=== PATIENT | female | born 1995 | race Caucasian/White ===

== ENCOUNTER 2019-06-29 11:45 | Inpatient (IN) | payer OTHER, SELFPAY ==
[2019-06-29 12:17] VITALS: BP 123/82; TEMP 98.6; BMI 37.9
[2019-06-29] MEDS ORDERED: hydrALAZINE 20 MG/ML VIAL SLOW IVP PRN (12:34)
[2019-06-29 13:21] LABS: #Eosinphils 0.1 thou/uL (0.0-0.7); #Lymphocytes 1.6 thou/uL (1.20-3.40); #Monocytes 0.8 thou/uL (0.11-0.59); #Neutrophils 7.8 thou/uL (1.40-6.50); %Basophils 0.2 % (0.0-1.0); %Eosinophils 0.9 % (0.0-10.0); %Lymphocytes 15.1 % (21.0-51.0); %Monocytes 7.6 % (0.0-10.0); %Neutrophils 76.2 % (42.0-75.0); Hemoglobin 10.7 g/dL (12.0-16.0); Mean Corpuscular HGB CONC 33.8 g/dL (32.0-36.0); Mean Corpuscular Hemoglobin 28.6 pg (27.0-31.0); Mean Corpuscular Volume 84.8 fL (78.0-98.0); Mean Platelet Volume 10.8 fL (7.4-10.4); Platelet Count 146 thou/uL (130-400); RBC Distribution Width 12.8 % (11.5-14.5); Red Blood Cell (RBC) Count 3.75 mill/uL (4.20-5.40); White Blood Cell (WBC) Count 10.3 thou/uL (4.8-10.8)
--- NOTE | 2019-06-29 13:38 | PDOC.LDHP ---
Labor and Delivery H&P Chief complaint: other (PIH workup) HPI: 24 y/o at 35w5d sent from Dr. Wu for PIH workup. Denies VB, LOF, ctx or decreased FM. Endorses a ANDERSON but has a history of migraines and has not eaten anything or had any caffeine today. Denies RUQ pain or vision changes. ROS neg for HEENT, cv, pulm, gi, gu, neuro, psych, skin, musculoskeletal or constitutional symptoms other than mentioned above. 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, anxiety, depression, asthma Current medications: pre-margarita vitamins, other (Metformin, fioricet, Bactrim) Previous surgical history: other (hip arthroscopy, rotator cuff repair, knee arthroscopy, ex lap for bleeding spleen) Allergies/Adverse Reactions: Allergies Allergy/AdvReac Type Severity Reaction Status Date / Time codeine Allergy Verified 06/29/19 12:53 gabapentin Allergy Verified 06/29/19 12:53 tramadol Allergy Verified 06/29/19 12:53 Social history: none - Physical Exam Vital signs reviewed and normal: yes General: NAD, resting Lungs: nonlabored breathing Abdomen: gravid Extremeties: no edema FHT: category 1 (150s, mod variability, + accels, no decels) [place] contractions every: none - Assessment 24 y/o at 35w5d with no e/o preeclampsia. PIH labs normal, Urine protein/creatinine ratio 0.1. status reassuring with reactive NST. - Plan -: D/c home with precautions. Advised to keep all appointments.
[2019-06-29 13:39] LABS: Creatinine, Urine 120.16 mg/dL (47-110)
[2019-06-29 13:45] LABS: ALT (SGPT) 32 U/L (8-55); AST (SGOT) 17 U/L (5-34); Albumin 3.5 g/dL (3.5-5.0); Alkaline Phosphatase 118 U/L (40-110); Anion Gap 13 mmol/L (10-20); BUN (Urea Nitrogen) 10 mg/dL (7.0-18.7); Bilirubin, Total 0.2 mg/dL (0.2-1.2); Calc. Creatinine Clearance 197 mL/min (70-130); Calcium 9.1 mg/dL (7.8-10.44); Carbon Dioxide 22 mmol/L (22-29); Chloride 107 mmol/L (98-107); Estimated GFR-MDRD Greater than 90; Globulin 3.5 g/dL (2.4-3.5); Glucose 76 mg/dL (70-105); Potassium 4.6 mmol/L (3.5-5.1); Sodium 137 mmol/L (136-145)
== END 2019-06-29 14:02 | disposition home or self-care (01) | DRG 951 ==
LOC: L&D/OP 11:45 → L&D 12:45
PROVIDERS: ADMIT Student in an Organized Health Care Education/Training Program; ATTEND Student in an Organized Health Care Education/Training Program
DX: Z03.79 Encounter for other suspected maternal and fetal conditions ruled out (principal); O26.893 Other specified pregnancy related conditions, third trimester; O99.283 Endocrine, nutritional and metabolic diseases complicating pregnancy, third trimester; E28.2 Polycystic ovarian syndrome; Z3A.35 35 weeks gestation of pregnancy; O99.353 Diseases of the nervous system complicating pregnancy, third trimester; O99.343 Other mental disorders complicating pregnancy, third trimester; F41.9 Anxiety disorder, unspecified; F32.9 Major depressive disorder, single episode, unspecified; O99.513 Diseases of the respiratory system complicating pregnancy, third trimester; G43.909 Migraine, unspecified, not intractable, without status migrainosus; J45.909 Unspecified asthma, uncomplicated; Z79.899 Other long term (current) drug therapy; Z88.5 Allergy status to narcotic agent; Z88.8 Allergy status to other drugs, medicaments and biological substances; Z79.84 Long term (current) use of oral hypoglycemic drugs; G40.A09 Absence epileptic syndrome, not intractable, without status epilepticus
CPT/HCPCS: 36415; 80053; 82570; 84156; 85025; 99284

== ENCOUNTER 2019-07-12 18:00 | Inpatient (IN) | payer OTHER ==
[~2019-07-12 18:00] MED LIST: Bupivacaine PF 0.5% 30 ML VIAL ONE
[2019-07-12] MEDS ORDERED: Diphenoxylate HCl/Atropine Tablet PO PRN (20:23)
[2019-07-12] MEDS ORDERED: Misoprostol 200 MCG TAB PR PRN (20:23)
[2019-07-12] MEDS ORDERED: HYDROcodone/Acetaminophen 5/325 mg Tablet PO PRN (20:23)
[2019-07-12] MEDS ORDERED: Ibuprofen 800 MG TAB PO PRN (20:23)
[2019-07-12] MEDS ORDERED: Ondansetron PF 4 MG/2 ML Vial IVP PRN (20:23)
[2019-07-12] MEDS ORDERED: Lidocaine 1% (PF) 30 ML VIAL SC PRN (20:23)
[2019-07-12] MEDS ORDERED: Acetaminophen 500 MG TAB PO PRN (20:23)
[2019-07-12] MEDS ORDERED: Carboprost 250 MCG/ML AMP IM PRN (20:23)
[2019-07-12] MEDS ORDERED: NS / Oxytocin 40 units/1000ml 1,000 ML IV PRN (20:23)
[2019-07-12] MEDS ORDERED: Methylergonovine 0.2 MG/ML VIAL IM PRN (20:23)
[2019-07-12] MEDS ORDERED: Promethazine HCl 25 MG/ML VIAL IM PRN (20:23)
[2019-07-12] MEDS ORDERED: hydrALAZINE 20 MG/ML VIAL SLOW IVP PRN (20:23)
[2019-07-12] MEDS ORDERED: NS w/ Oxytocin 10 units 500 ML IV SCH (20:30)
[2019-07-12 20:53] VITALS: BMI 37.5
[2019-07-12 21:42] LABS: Hemoglobin 11.2 g/dL (12.0-16.0); Mean Corpuscular HGB CONC 34.2 g/dL (32.0-36.0); Mean Corpuscular Volume 81.9 fL (78.0-98.0); Mean Platelet Volume 10.8 fL (7.4-10.4); Platelet Count 155 thou/uL (130-400); RBC Distribution Width 13.3 % (11.5-14.5); Red Blood Cell (RBC) Count 4.01 mill/uL (4.20-5.40); White Blood Cell (WBC) Count 10.4 thou/uL (4.8-10.8)
[2019-07-12] MEDS: Misoprostol 100 MCG TAB VAG SCH (21:45)
[2019-07-12 21:50] LABS: ALT (SGPT) 17 U/L (8-55); AST (SGOT) 17 U/L (5-34); Albumin 3.9 g/dL (3.5-5.0); Alkaline Phosphatase 150 U/L (40-110); Anion Gap 14 mmol/L (10-20); BUN (Urea Nitrogen) 10 mg/dL (7.0-18.7); Bilirubin, Total 0.2 mg/dL (0.2-1.2); Calc. Creatinine Clearance 192 mL/min (70-130); Calcium 9.5 mg/dL (7.8-10.44); Carbon Dioxide 20 mmol/L (22-29); Chloride 105 mmol/L (98-107); Estimated GFR-MDRD Greater than 90; Globulin 3.2 g/dL (2.4-3.5); Glucose 84 mg/dL (70-105); Potassium 3.9 mmol/L (3.5-5.1); Protein, Total 7.1 g/dL (6.0-8.3); Sodium 135 mmol/L (136-145)
[2019-07-12 22:08] LABS: Syphilis Antibody Nonreactive (Nonreactive); Syphilis Antibody Index 0.08 S/CO (<1.00 Non-Reactive)
[2019-07-12] MEDS: Butorphanol Tartrate 1 MG/ML VIAL SLOW IVP PRN (23:53)
[2019-07-13 00:06] LABS: HBSAg Index 0.21 S/CO (0-0.99); Hep B Surf Ag Non-Reactive S/CO (NonReactive)
[2019-07-13 00:23] LABS: Bilirubin Negative (Negative); Blood, Urine Negative (Negative); Clarity Clear (Clear); Glucose, Urine (Dipstick) Normal (Negative); Leukocyte 75 Leu/uL (Negative); Nitrite Negative (Negative); Protein, Urine (Dipstick) Negative (Neg-Trace); RBC/HPF 0-3 HPF (0-3); Squamous Epithelial 0-3 HPF (0-3); Urobilinogen Normal mg/dL (Less than 2); WBC/HPF 0-3 HPF (0-3)
[2019-07-13 00:24] LABS: Bacteria/HPF 1+ HPF (None Seen)
[2019-07-13] MEDS ORDERED: Magnesium Sulfate 20 gm/500 ml 4 GM/100 ML BAG IVPB SCH (01:15)
[2019-07-13] MEDS ORDERED: hydrALAZINE 20 MG/ML VIAL SLOW IVP SCH (01:15)
[2019-07-13] MEDS ORDERED: Magnesium Sulfate 20 gm/500 ml 20 GM/500 ML BAG IVPB SCH (01:15)
[2019-07-13] MEDS: Butorphanol Tartrate 1 MG/ML VIAL SLOW IVP PRN (01:24)
[2019-07-13] MEDS ORDERED: Fentanyl 4 mcg/Bup 0.1% Cadd 100 ML ONE (03:03)
[2019-07-13] MEDS ORDERED: Acetaminophen 325 MG TAB PO PRN (03:56)
[2019-07-13] MEDS ORDERED: Lactated Ringer's 500 ML IV PRN (03:56)
[2019-07-13] MEDS ORDERED: ePHEDrine/0.9% NaCl/PF SYRINGE 50 mg/10 ml SLOW IVP PRN (03:56)
[2019-07-13] MEDS ORDERED: Promethazine HCl 25 MG/ML VIAL IM PRN ×2 (03:56→16:55)
[2019-07-13] MEDS ORDERED: Naloxone HCl 0.4 mg/ml Vial IVP PRN ×2 (03:56)
[2019-07-13] MEDS ORDERED: diphenhydrAMINE 50 MG/ML VIAL IVP PRN (03:56)
[2019-07-13] MEDS ORDERED: Ondansetron PF 4 MG/2 ML Vial IVP PRN ×2 (03:56→16:55)
[2019-07-13] MEDS ORDERED: Communication Order-Pharmacy FS SCH (04:00)
[2019-07-13] MEDS ORDERED: Fentanyl 4 mcg/Bupivacaine 0.1% Cassette 100 ML EPIDURAL SCH (04:00)
[2019-07-13] MEDS ORDERED: Penicillin G Potassium 5 MILL.UNITS in Sodium Chloride 0.9% 100 ML IVPB SCH (06:00)
[2019-07-13] MEDS: Lactated Ringer's 1,000 ML IV SCH (07:57)
--- NOTE | 2019-07-13 09:09 | PDOC.LDHP ---
Labor and Delivery H&P Chief complaint: scheduled induction HPI: 24yo at 37w5d by LMP here for IOL due to GHTN. No PIH sx, intermittent mild ANDERSON, no vision change RUQ pain. Current gestational age (weeks): 37 Due date: 07/29/19 Dating criteria: last menstrual period Grav: 1 Para: 0 Current complications: gestational hypertension Abnormal US findings: No Current medications: pre- vitamins Allergies/Adverse Reactions: Allergies Allergy/AdvReac Type Severity Reaction Status Date / Time tramadol Allergy Severe Verified 07/12/19 20:41 codeine Allergy Intermediate Rash Verified 07/12/19 20:41 gabapentin Allergy Intermediate Rash Verified 07/12/19 20:41 Social history: none - Physical Exam Abnormal vital signs: severe range BP occ, s/p hydralazine x 2 overnight General: NAD, resting Heart: RRR Lungs: CTAB Abdomen: gravid Extremeties: no edema FHT: category 1 [place] contractions every: not picking up contractions - Vaginal Exam cm dilated: 3 Effacement: 75% Station: -2 (arom clear) - OB Labs Blood type: A RH: positive Antibody Screen: negative HIV: negative RPR: negative HEPSAg: negative 1 hour GCT: negative GBS: unknown Urine drug screen: negative Rubella: immune - Assessment L&D Assessment: medically indicated induction - Plan Plan: admit to L&D, cervical ripening, labor augmentation if indicated, GBS antibiotic prophylaxis, informed consent obtained, anesthesia consult for pain management -: PIH- on Mag due to severe range BP, normal labs. No sx currently, no signs of mag toxicity.
[2019-07-13] MEDS ORDERED: Pen G 2.5 MILL.UNITS/50 ML BAG IVPB SCH (10:00)
[2019-07-13] MEDS ORDERED: Penicillin G 2.5 MILL.units 50 ML ONE (10:14)
[2019-07-13] MEDS: Magnesium Sulfate 20 GM in Dextrose 5% in Water 460 ML IV SCH ×2 (10:17→20:43)
[2019-07-13] MEDS ORDERED: Lanolin Ointment 7 GM TUBE TOP PRN (16:55)
[2019-07-13] MEDS ORDERED: Preparation H Ointment 57 gram tube RC PRN (16:55)
[2019-07-13] MEDS ORDERED: hydrALAZINE 20 MG/ML VIAL SLOW IVP PRN (16:55)
[2019-07-13] MEDS ORDERED: HYDROcodone/Acetaminophen 5/325 mg Tablet PO PRN ×2 (16:55)
[2019-07-13] MEDS ORDERED: Benzocaine-Menthol 82.5 ML CAN TOP PRN (16:55)
[2019-07-13] MEDS ORDERED: Bisacodyl 10 MG SUPP PR PRN (16:55)
[2019-07-13] MEDS ORDERED: Milk Of Magnesia 30 ML UDCUP PO PRN (16:55)
[2019-07-13] MEDS ORDERED: diphenhydrAMINE 25 MG CAP PO PRN (16:55)
--- NOTE | 2019-07-13 16:57 | PDOC.OPDEL ---
OB Operative/Delivery Note Delivery Dr/Surgeon: Bryce Assist: n/a Pre-Delivery Diagnosis: medically indicated induction (GHTN at 37w) Procedure/Post Delivery Dx: spontaneous vaginal delivery Weeks gestation: 37 Anesthesia: epidural - Findings A Sex: male - 1 min: 9 - 5 min: 9 - Additional Findings/Plan Placenta delivered: spontaneous Repaired Obstetrical Laceration: none Estimated blood loss: 300cc Compilations/Other Findings: NCx1 Post delivery plan: routine recovery
[2019-07-13] MEDS ORDERED: NS / Oxytocin 40 units/1000ml 1,000 ML IV SCH (17:00)
[2019-07-13] MEDS ORDERED: Ferrous Sulfate 325 MG TAB PO SCH (18:30)
[2019-07-13] MEDS ORDERED: Adacel (T-DAP) 0.5 ML SYRINGE IM ONE (21:00)
[2019-07-13] MEDS: Ibuprofen 800 MG TAB PO SCH (23:16)
[2019-07-13] MEDS: Docusate Calcium (SURFAK) 240 MG CAP PO SCH (23:17)
[2019-07-14] MEDS: Ibuprofen 800 MG TAB PO SCH ×3 (06:08→21:30)
[2019-07-14] MEDS: Magnesium Sulfate 20 GM in Dextrose 5% in Water 460 ML IV SCH (07:47)
--- NOTE | 2019-07-14 12:07 | PDOC.PP ---
Post Progress Note Post Day #: 1 Subjective: doing well, ambulating and tolerating regular diet, no PIH sx PO intake tolerated: yes Flatus: yes Ambulation: yes Weight Weight 219 lb - Physical Examination General: NAD Respiratory: non-labored breathing Abdominal: no distention Fundus firm & at: below umb Neurological: no gross focal deficits Psychiatric: A&Ox3, normal affect Result Diagrams: 07/12/19 21:26 07/12/19 21:26 Additional Labs: Post Labs Blood Type A POSITIVE 07/12/19 21:43 Hep Bs Antigen Non-Reactive S/CO (NonReactive) 07/12/19 21:26 (1) Vaginal delivery Code(s): O80 - ENCOUNTER FOR FULL-TERM UNCOMPLICATED DELIVERY Status: Acute (2) induced hypertension Code(s): O13.9 - GESTATIONAL HTN W/O SIGNIFICANT PROTEINURIA, UNSP TRIMESTER Status: Acute - Assessment/Plan PPD1 on magnesium for seizure prophlaxis. BP overnight WNL. Will DC magnesium today and transfer to PP floor.
[2019-07-14] MEDS: Prenatal Vitamin 1 TAB PO SCH (14:59)
[2019-07-14] MEDS: Docusate Calcium (SURFAK) 240 MG CAP PO SCH ×3 (14:59→21:35)
[2019-07-14] MEDS: Ferrous Sulfate 325 MG TAB PO SCH ×2 (14:59→18:14)
[2019-07-14] MEDS: Misoprostol 100 MCG TAB VAG SCH ×3 (15:05→15:16)
[2019-07-14] MEDS: Lactated Ringer's 1,000 ML IV SCH (15:06)
[2019-07-15] MEDS: Ibuprofen 800 MG TAB PO SCH ×2 (05:06→13:57)
[2019-07-15 08:08] VITALS: BP 115/78; TEMP 98.4
[2019-07-15] MEDS: Ferrous Sulfate 325 MG TAB PO SCH ×2 (09:46→17:55)
[2019-07-15] MEDS: Docusate Calcium (SURFAK) 240 MG CAP PO SCH (09:46)
[2019-07-15] MEDS: Prenatal Vitamin 1 TAB PO SCH (09:46)
--- NOTE | 2019-07-15 15:35 | PDOC.PP ---
Post Progress Note Post Day #: 2 Subjective: NO sx PIH PO intake tolerated: yes Flatus: yes Ambulation: yes Vital Signs (12 hours) Temp Pulse Resp BP Pulse Ox 07/15/19 08:07 98.4 F 70 16 115/78 97 07/15/19 05:00 97.9 F 66 18 123/71 Weight Weight 219 lb - Physical Examination General: NAD Respiratory: non-labored breathing Abdominal: no distention, appropriately TTP Extremities: negative homans (B) Skin: no rash Neurological: no gross focal deficits Psychiatric: normal affect Result Diagrams: 07/12/19 21:26 07/12/19 21:26 Additional Labs: Post Labs Blood Type A POSITIVE 07/12/19 21:43 Hep Bs Antigen Non-Reactive S/CO (NonReactive) 07/12/19 21:26 - Assessment/Plan PPD2 s/p TSVD VSSAF PIH- s/p Mag, BP nl, no sx neg labs
== END 2019-07-15 20:00 | disposition home or self-care (01) | DRG 807 ==
LOC: L&D 19:53 → 3SW 07-14 15:02
PROVIDERS: ADMIT Student in an Organized Health Care Education/Training Program; ATTEND Student in an Organized Health Care Education/Training Program
PROC: 10E0XZZ Delivery of Products of Conception, External Approach (ICD-10-PCS; principal; 2019-07-13)
PROC: 10907ZC Drainage of Amniotic Fluid, Therapeutic from Products of Conception, Via Natural or Artificial Opening (ICD-10-PCS; 2019-07-13)
PROC: 3E033VJ Introduction of Other Hormone into Peripheral Vein, Percutaneous Approach (ICD-10-PCS; 2019-07-13)
DX: O13.4 Gestational [pregnancy-induced] hypertension without significant proteinuria, complicating childbirth (principal); Z37.0 Single live birth; Z3A.37 37 weeks gestation of pregnancy
CPT/HCPCS: 36415; 51702; 80053; 81001; 85027; 86780; 86850; 86900; 86901; 87340; J0360; J0595; J2405; J2540; J2590; J3475; J3490; J7070; S0020

== ENCOUNTER 2023-07-06 20:50 | Emergency (ER) | payer BC, OTHER, SELFPAY ==
[~2023-07-06 20:50] MED LIST changes: -Bupivacaine PF 0.5% 30 ML VIAL ONE; +Iopamidol 370 76% 100 ML VIAL ONE
[2023-07-06 21:18] LABS: #Basophils 0.1 thou/uL (0.0-0.2); #Eosinphils 1.2 thou/uL (0.0-0.7); #Monocytes 0.8 thou/uL (0.11-0.59); #Neutrophils 6.5 thou/uL (1.40-6.50); %Basophils 0.5 % (0.0-1.0); %Eosinophils 10.6 % (0.0-10.0); %Lymphocytes 23.2 % (21.0-51.0); %Monocytes 7.1 % (0.0-10.0); %Neutrophils 57.8 % (42.0-75.0); Hematocrit 42.3 % (36.0-47.0); Hemoglobin 14.1 g/dL (12.0-16.0); Mean Corpuscular HGB CONC 33.3 g/dL (32.0-36.0); Mean Corpuscular Hemoglobin 29.7 pg (27.0-31.0); Mean Corpuscular Volume 89.1 fl (78.0-98.0); Mean Platelet Volume 11.6 fL (7.4-10.4); Platelet Count 207 10x3/uL (130-400); RBC Distribution Width 12.9 % (11.5-14.5); Red Blood Cell (RBC) Count 4.75 mill/uL (4.20-5.40); White Blood Cell (WBC) Count 11.2 10x3/uL (4.8-10.8)
[2023-07-06 21:49] LABS: ALT (SGPT) 29 U/L (8-55); AST (SGOT) 20 U/L (5-34); Albumin 4.4 g/dL (3.5-5.0); Alkaline Phosphatase 81 U/L (40-110); Anion Gap 11 mmol/L (10-20); BUN (Urea Nitrogen) 13 mg/dL (7.0-18.7); Bilirubin, Total 0.2 mg/dL (0.2-1.2); Calc. Creatinine Clearance 0 mL/min (70-130); Calcium 9.3 mg/dL (7.8-10.44); Carbon Dioxide 22 mmol/L (22-29); Chloride 107 mmol/L (98-107); Estimated GFR 100; Globulin 3.4 g/dL (2.4-3.5); Glucose 92 mg/dL (70-105); Lipase 34 U/L (8-78); Protein, Total 7.8 g/dL (6.0-8.3); Sodium 136 mmol/L (136-145)
[2023-07-06] MEDS ORDERED: Ondansetron PF 4 MG/2 ML Vial ONE (21:56)
[2023-07-06] MEDS ORDERED: Ketorolac Tromethamine 30 MG (1 mL) VIAL ONE (21:56)
[2023-07-06 21:58] LABS: Bacteria/HPF 3+ HPF (None Seen); Bilirubin Negative (Negative); Blood, Urine Negative (Negative); CAUTI Indications for Culture Pelvic or flank pain; Clarity Turbid (Clear); Glucose, Urine (Dipstick) Normal (Negative); Ketone, Urine Negative (Negative); Leukocyte 500 Leu/uL (Negative); Nitrite 2+ (Negative); Protein, Urine (Dipstick) Negative (Neg-Trace); RBC/HPF 0-3 HPF (0-3); Specific Gravity, Urine 1.023 (1.002-1.036); Urobilinogen Normal mg/dL (Less than 2)
[2023-07-06 22:00] LABS: Pregnancy Test - Urine (BHCG) Negative (Negative); Pregu Control Background? CLEAR/WHITE (CLR/WHITE); Pregu Control Bar Appear? YES (CONTROL BAR); Specific Gravity 1.023 (1.002-1.036)
[2023-07-06 22:02] LABS: Urine Culture Reflex Yes Yes
== END 2023-07-07 00:22 | disposition home or self-care (01) ==
LOC: ERS 20:50
DX: N10 Acute pyelonephritis (principal)
CPT/HCPCS: 36415; 74177; 80053; 81001; 81025; 83690; 85025; 87077; 87086; 87186; 96374; 96375; J1885; J2405; Q9967